=== PATIENT | female | born 1960 | race Hispanic/Latino ===

== ENCOUNTER 2025-01-31 11:06 | Inpatient (IN) | payer MEDICARE ==
[~2025-01-31] VITALS: Ht 162.6 cm; Wt 69.0 kg
--- NOTE | 2025-01-31 11:11 | ERN ---
ED Note History of Present Illness Stated Complaint: GBW, DIZZINESS, NAUSEA, VOMITING Chief Complaint: Weakness Time Seen by MD: 11:08 Dictation: PATIENT IS A 64-YEAR-OLD FEMALE COMING IN VIA EMS WITH COMPLAINTS OF HAVING GENERALIZED BODY WEAKNESS NAUSEA VOMITING AND DIZZINESS. ONSET WAS 2-3 DAYS PRIOR TO ARRIVAL. SHE STATES SHE HAS A GENERALIZED HEADACHE. DENIES CHEST PAIN BACK PAIN NO SOB NO ABDOMINAL PAIN. NIH IS 0 ON APPROACH Allergies: Coded Allergies: No Known Drug Allergies (Unverified Allergy, Unknown, 01/31/25) Past Medical History History: Not Applicable RN Note Reviewed/Agreed w/PFSH: Yes Review of System Dictation CONSTITUTIONAL: NEGATIVE EXCEPT FOR HPI GB W HEAD/FACE: NEGATIVE EXCEPT FOR HPI EENT: NEGATIVE EXCEPT FOR HPI RESPIRATORY: NEGATIVE EXCEPT FOR HPI GASTROINTESTINAL/ABDOMINAL: NEGATIVE EXCEPT FOR HPI NAUSEA VOMITING GENITOURINARY: NEGATIVE EXCEPT FOR HPI MUSCULOSKELETAL: NEGATIVE EXCEPT FOR HPI INTEGUMENTARY: NEGATIVE EXCEPT FOR HPI NEUROLOGICAL/PSYCH: NEGATIVE EXCEPT FOR HPI DIZZINESS HEMATOLOGIC/LYMPHATIC: NEGATIVE EXCEPT FOR HPI ALL SYSTEMS NEGATIVE, EXCEPT NOTED ABOVE. 13 POINT REVIEW OF SYSTEMS ASSESSED AND ALL NEGATIVE EXCEPT FOR ABOVE. Initial Vital Sign VS Vital Signs Date Time Temp Pulse Resp B/P (MAP) Pulse Ox O2 Delivery O2 Flow Rate FiO2 01/31/25 11:08 101.5 86 19 124/74 99 Room Air 0 01/31/25 12:59 21 Physical Exam Dictation VITAL SIGNS REVIEWED GENERAL APPEARANCE: ALERT, ORIENTED X 3, NO ACUTE DISTRESS, WELL DEVELOPED, NOURISHED. HEAD AND FACE: NON-TRAUMATIC. EYES: PERRL, PINK CONJUNCTIVAS, EYELID NO TRAUMA, ANTERIOR CHAMBER WITH ARCUS SENILIS. EARS: PINNAS INTACT AND NO SIGNS OF TRAUMA OR ERYTHEMA EAR CANALS CLEAR AND NO DISCHARGE TM NO ERYTHEMA NOSE: NO DISCHARGE, NO BLEEDING. OROPHARYNX: MOUTH NORMAL, TONGUE PINK, PHARYNX CLEAR,NO ERYTHEMA, TONSILS NO EXUDATES, NO ABSCESSES NOTED, MUCOUS MEMBRANE MOIST NECK: SUPPLE, NON-TENDER, NO THYROMEGALY, NO MASSES, NO JVD, NO BRUITS BREAST:DEFERRED CHEST:NO TENDERNESS, NO CREPITUS, NO PARADOXICAL MOVEMENT, NO RETRACTIONS LUNGS:CLEAR, WELL-VENTILATED, SYMMETRIC, NO RALES, NO WHEEZING, NO RHONCHI, NO STRIDOR, GOOD BREATH SOUNDS BILATERALLY HEART: REGULAR RATE, REGULAR RHYTHM, NO MURMUR, NO GALLOPS VASCULAR: NO PERIPHERAL EDEMA, ABDOMEN: SOFT, POSITIVE BOWEL SOUNDS, NONDISTENDED, NO GUARDING, NONTENDER, NO REBOUND, NO MASSES NO HEPATOMEGALY, NO SPLENOMEGALY, NO SNELL'S SIGN, NO HERNIAS. NO FOCAL TENDERNESS RECTAL: DEFERRED GENITAL: DEFERRED NEUROLOGICAL: NORMAL SPEECH, MOTOR FUNCTION INTACT, SENSORY FUNCTION INTACT NIH IS 0 MUSCULOSKELETAL: NECK NONTENDER, FULL RANGE OF MOTION, BACK NONTENDER, FULL RANGE OF MOTION, EXTREMITIES: NONTENDER, FULL RANGE OF MOTION SKIN: COLOR PINK, DRY, NO TURGOR, NO RASH, NO LACERATIONS, NO ABRASIONS, NO CONTUSIONS. LYMPHATIC: DEFERRED Results (Laboratory/Radiology) Laboratory/Radiology Laboratory Tests Test 01/31/25 11:23 01/31/25 11:32 01/31/25 12:58 01/31/25 14:58 White Blood Count 10.5 K/uL (4.8-10.8) Red Blood Count 4.35 MIL/uL (4.00-5.50) Hemoglobin 12.5 g/dL (12.0-16.0) Hematocrit 36.8 % (36-48) Mean Corpuscular Volume 84.6 fL (79-99) Mean Corpuscular Hemoglobin 28.7 pg (27.0-33.0) Mean Corpuscular Hemoglobin Concent 34.0 g/dL (32.0-36.0) Red Cell Distribution Width 13.2 % (11.0-15.5) Platelet Count 200 K/uL (130-400) Mean Platelet Volume 10.0 fL (7.5-10.5) Immature Granulocyte % (Auto) 0.5 % (0-1) Neutrophils (%) (Auto) 85.9 % (40.0-77.0) H Lymphocytes (%) (Auto) 7.4 % (21.0-51.0) L Monocytes (%) (Auto) 4.9 % (3.0-13.0) Eosinophils (%) (Auto) 0.9 % (0.0-8.0) Basophils (%) (Auto) 0.4 % (0.0-5.0) Neutrophils # (Auto) 9.0 K/uL (1.8-7.7) H Lymphocytes # (Auto) 0.8 K/uL (1.0-4.8) L Monocytes # (Auto) 0.5 K/uL (0.1-1.0) Eosinophils # (Auto) 0.09 K/uL (0.00-0.70) Basophils # (Auto) 0.04 K/uL (0.00-0.20) Absolute Immature Granulocyte (auto 0.05 K/uL (0-1) Nucleated Red Blood Cells 0.0 % (0.0-0.19) White Cell Morphology Comment See comments Sodium Level 134 mmol/L (136-145) L Potassium Level 3.7 mmol/L (3.5-5.1) Chloride Level 101 mmol/L (101-111) Carbon Dioxide Level 29 mmol/L (21-32) Blood Urea Nitrogen 23 mg/dL (7-18) H Creatinine 1.1 mg/dL (0.5-1.0) H Glomerular Filtration Rate Calc 55 mL/min (>90) Random Glucose 94 mg/dL (70-105) Lactic Acid Level 2.2 mmol/L (0.8-2.5) 1.0 mmol/L (0.8-2.5) Total Calcium 9.2 mg/dL (8.5-10.1) Troponin I High Sensitivity 8 ng/L (4-50) Lipase 18 U/L (16-77) Influenza Type A Antigen Negative For Type A Influenza Type B Antigen Negative For Type B SARS-CoV-2 Antigen (Rapid) PRESUMPTIVE NEGATIVE Urine Color YELLOW (YELLOW) Urine Appearance CLOUDY (CLEAR) H Urine pH 6.0 (5.0-8.0) Urine Specific [place] 1.015 (1.001-1.031) Urine Protein 50 mg/dL (NEGATIVE) H Urine Glucose (UA) NEGATIVE mg/dL (NEGATIVE) Urine Ketones NEGATIVE mg/dL (NEGATIVE) Urine Occult Blood +- (TRACE) (NEGATIVE) H Urine Nitrate NEGATIVE (NEGATIVE) Urine Bilirubin NEGATIVE mg/dL (NEGATIVE) Urine Urobilinogen 0.2 mg/dL (0.2-1.0) Urine Leukocyte Esterase 500 Senthil/uL (NEGATIVE) H Urine RBC 2-5 /HPF (0-1) H Urine WBC TNTC /HPF (0-1) H Urine WBC Clumps (Auto) MOD /HPF (0-1) Urine Squamous Epithelial Cells MANY /HPF (0-2) Urine Non-Squamous Epithelial Cells 2-5 /HPF (0-2) Urine Bacteria Moderate /HPF (None Seen) H Labs Reviewed?: Yes EKG Comment: EKG SINUS RHYTHM/HEART RATE 86/LEFT ANTERIOR FASCICULAR BLOCK/LEFT VENTRICULAR HYPERTROPHY. ED Course ED Course Orders Procedure Category Date Status Time Cbc With Differential LAB 01/31/25 Complete 11:08 Troponin I High LAB 01/31/25 Complete Sensitivity 11:08 Urinalysis Profile LAB 01/31/25 Complete 11:08 12 Lead Ekg Tracing- EKG 01/31/25 Complete Technical 11:08 0.9%Nacl 1000ml (Ns PHA 01/31/25 Complete 1000ml) 11:30 Ondansetron 4mg Inj PHA 01/31/25 Complete (Zofran 4mg Inj) 11:30 Lipase LAB 01/31/25 Complete 11:08 Basic Metabolic Panel LAB 01/31/25 Complete 11:08 Covid19 (Sars Antigen LAB 01/31/25 Complete Rapid) 11:16 Influenza Type A & B, LAB 01/31/25 Complete Rapid 11:16 Blood Cult LILY 01/31/25 In Process 11:16 Lactic Acid LAB 01/31/25 Complete 11:16 Acetaminophen 500mg PHA 01/31/25 Complete Tab (Tylenol 500mg T 11:30 Culture Urine LILY 01/31/25 In Process 13:27 Ceftriaxone 2gm Vial PHA 01/31/25 Complete (Rocephin 2gm Inj) 14:30 Lactic Acid (Removed) LAB 01/31/25 Complete 14:45 Current Medications Medications (Trade) Dose Ordered Sig/Zenaida Route PRN Reason Start Time Stop Time Status Last Admin Dose Admin Acetaminophen (TYLenol 500MG TAB) 1,000 mg ONCE ONCE PO 01/31/25 11:30 01/31/25 11:31 DC 01/31/25 11:48 Ceftriaxone Sodium (Rocephin 2gm Inj) 2 gm ONCE ONCE IVPB 01/31/25 14:30 01/31/25 14:31 DC Ondansetron HCl (zoFRAN 4MG INJ) 4 mg ONCE ONCE IVP 01/31/25 11:30 01/31/25 11:31 DC 01/31/25 11:48 Sodium Chloride 1,000 ml @ 0 mls/hr ONCE ONCE IV 01/31/25 11:30 01/31/25 11:31 DC 01/31/25 11:48 Vital Signs Date Time Temp Pulse Resp B/P (MAP) Pulse Ox O2 Delivery O2 Flow Rate FiO2 01/31/25 12:59 99.5 77 10 111/51 Room Air* 0 21 01/31/25 11:48 99.5 01/31/25 11:08 101.5 86 19 124/74 99 Room Air 0 1530/spoke with Dr. VIDAL and reviewed EKG labs and interventions for sepsis. He agreed to admit patient. Medical Decision Making MDM MDM: Differential diagnosis: ACS/AMI/urinary tract infection/pyelonephritis/electrolyte imbalance/dehydration Rationale: Tests considered and ordered secondary to shared decision making include: labs, ECG and radiology Previous outside records reviewed: Old ER visits. Risk of complication and/or morbidity or mortality of patient management: None Medications-Per medication reconciliation Need for hospitalization: Patient does meet criteria for hospitalization. Patient will need to be admitted for JACKY/acute cystitis with hematuria with Need for emergency major/minor surgery: No There are no social concerns with this patient. Prescription drug management Prescriptions will include symptomatic care Patient's prior external medical records from other ER visits were reviewed by me as indicated. Prior testing and results from previous visits were reviewed. Prior tests were taken into account with medical decision making and resource utilization, independent historian/historians were used to obtain complete medical history. I independently interpreted the test that were performed, results were reviewed by me and considered findings on radiology if ordered. Medical management and examination interpretation discussions were had by me with other qualified healthcare professionals as indicated for the patient's care. DX & DISP Disposition: Inpatient Decision to Admit Time: 15:35 Departure Impression: Primary Impression: Acute cystitis with hematuria Additional Impressions: JACKY (acute kidney injury), Hypochloremia, Hyponatremia, Fever, Sepsis Condition: Stable Time of Disposition: 15:35 I have reviewed the case, and I agree with, Diagnosis and Plan SAMIA CHAVEZ NP Jan 31, 2025 11:11
[2025-01-31 11:41] LABS: IMMATURE GRANULOCYTE ABSOLUTE 0.05 K/uL (0-1); NUCLEATED RED BLOOD CELLS 0.0 % (0.0-0.19); PLATELET COUNT (AUTO) 200 K/uL (130-400); RED BLOOD CELL COUNT(AUTO) 4.35 MIL/uL (4.00-5.50); RED CELL DISTRIBUTION WIDTH 13.2 % (11.0-15.5); WHITE BLOOD COUNT (AUTO) 10.5 K/uL (4.8-10.8)
[2025-01-31] MEDS: 0.9%NACL 1000ML 1,000 ML IV ONE (11:48)
[2025-01-31 11:59] LABS: CREATININE 1.1 mg/dL (0.5-1.0); GLOMERULAR FILTR. RATE CALC 55.0 mL/min (>90); GLUCOSE,RANDOM 94.0 mg/dL (70-105); SODIUM SERUM 134.0 mmol/L (136-145); UREA NITROGEN, BLOOD 23.0 mg/dL (7-18)
--- NOTE | 2025-01-31 12:10 | EKG ---
[facility] Test Date: 2025-01-31 Test Time: 11:16:37 Pat Name: BEATRIZ JACOBS Department: ED Room: 320 Gender: F Test Designer: [id number] : 1960 Requested By: SAMIA CHAVEZ Order Number: [id number] Reading MD: Marguerite Suarez Measurements Intervals [place] Rate: 86 P: 26 LA: 154 QRS: -53 QRSD: 99 T: 32 QT: 369 QTc: 441 Interpretive Statements Sinus rhythm Left anterior fascicular block Left ventricular hypertrophy No previous ECG available for comparison Electronically Signed On 02-01-2025 14:07:50 CDT by Marguerite Suarez Please click the below link to view image of tracing.
[2025-01-31 12:12] LABS: COVID19 (SARS ANTIGEN RAPID) PRESUMPTIVE NEGATIVE (NEGATIVE); INFLUENZA TYPE A Negative For Type A (NEGATIVE); INFLUENZA TYPE B Negative For Type B (NEGATIVE)
[2025-01-31 13:20] LABS: APPEARANCE,URINE CLOUDY (CLEAR); GLUCOSE, URINE (UA) NEGATIVE (NEGATIVE); LEUKOCYTE ESTERASE ,URINE 500 Leu/uL (NEGATIVE); NITRATE,URINE NEGATIVE (NEGATIVE); OCCULT BLOOD,URINE +- (TRACE) (NEGATIVE)
[2025-01-31 13:27] LABS: ADD UA MICROSCOPIC YES
[2025-01-31 13:36] LABS: SQUAMOUS EPITHELIAL CELL,UR MANY /HPF (0-2); WBC CLUMP MOD /HPF (0-1)
[2025-01-31] MEDS ORDERED: 0.9%NACL 50ML IV SCH (16:00)
[2025-01-31] MEDS: ZOSYN 3.375GM +NS 50ML IVPB SCH (16:23)
--- NOTE | 2025-01-31 18:14 | NUR ---
PENDING FAMILY TO BRING MEDICATIONS FROM HOME.
[2025-01-31 20:00] VITALS: BP 137/71; PULSE 85; RESP 15; TEMP 101
[2025-01-31 21:01] VITALS: TEMP 103
--- NOTE | 2025-01-31 23:09 | HP ---
INFECTIOUS DISEASE HISTORY & PHYSICAL NOTE Date of Service: Jan 31, 2025 HISTORY OF PRESENT ILLNESS: This is a 64-year-old female patient with medical history of diabetes mellitus, hypercholesterolemia, psoriasis and left foot osteomyelitis who presented to the hospital with chief complaint of nausea, vomiting, and generalized body weakness. Patient reported experiencing fever at home but no chills. Patient had a fever of 101.5 and a lactic acid of 2.2 on admission. No recent travel. Influenza and COVID-19 test was negative. A Urinalysis was positive. We will obtain an abdominal ultrasound. Patient has been started on Zosyn IV. We will follow up on the culture results and antibiotics to be adjusted if necessary when culture is updated or finalized. REVIEW OF SYSTEMS CONSTITUTIONAL: Denies fever, chills, or fatigue. HEAD/FACE: No signs of trauma. EENT: Denies eye pain, blurred vision, double vision, or light sensitivity. RESPIRATORY: Denies shortness of breath, cough, wheezing CARDIOVASCULAR: Denies chest pain, palpitation, syncope GASTROINTESTINAL/ABDOMINAL: Nausea and vomiting GENITOURINARY: Denies dysuria or hematuria. MUSCULOSKELETAL: Denies joint pain, tenderness, or trauma. Weakness. INTEGUMENTARY: Denies rash or itchiness NEUROLOGICAL/PSYCH: Denies anxiety, depression, heat or cold intolerance. PAST MEDICAL HISTORY: Diabetes mellitus. Hypercholesterolemia. Psoriasis. Left foot osteomyelitis. PAST SURGICAL HISTORY: Left hip surgery. Left knee surgery. Incision and drainage of left foot abscess. Appendectomy. Tonsillectomy. PAST SOCIAL HISTORY: Denies the use of tobacco, alcohol or any other illicit drug. FAMILY HISTORY: Mother had colon cancer. Coded Allergies: No Known Drug Allergies (Unverified Allergy, Unknown, 01/31/25) PHYSICAL EXAM EYES: Anicteric. Pupils equal and reactive. HENT: No oral thrush seen, moist Oral mucosa NECK: Supple, no JVD or thyromegaly. LUNGS: Good air entry. No rales, no rhonchi. CARDIOVASCULAR: S1, S2 regular. No murmur heard. ABDOMEN: Soft, non tender, bowel sounds present, no organomegaly CENTRAL NERVOUS SYSTEM: Awake, alert, oriented x 3. SKIN: No rashes, no swelling. Psoriasis. LYMPHATICS: No peripheral lymphadenopathy MUSCULOSKELETAL: No joint swelling, erythema or tenderness. EXTREMITIES: No cyanosis or clubbing. Weakness. BACK: No deformity, no pressure ulcer. GENITOURINARY: No dysuria or hematuria Vital Sign (Last 12 Hours) 01/31/25 01/31/25 01/31/25 01/31/25 11:08 11:48 12:59 18:48 Temp 101.5 99.5 99.5 98.4 Pulse 86 77 81 Resp 19 10 17 B/P (MAP) 124/74 111/51 148/57 Pulse Ox 99 97 O2 Delivery Room Air Room Air* Room Air* O2 Flow Rate 0 0 0 FiO2 21 21 01/31/25 01/31/25 19:47 21:01 Temp 100.9 102.9 LABS: Laboratory: Test 01/31/25 19:49 01/31/25 14:58 01/31/25 12:58 01/31/25 11:32 Range/Units Whole Blood Glucose 121 H 70-110 MG/DL Lactic Acid Level 1.0 0.8-2.5 mmol/L Urine Color YELLOW YELLOW Urine Appearance CLOUDY H CLEAR Urine pH 6.0 5.0-8.0 Urine Specific [place] 1.015 1.001-1.031 Urine Protein 50 H NEGATIVE mg/dL Urine Glucose (UA) NEGATIVE NEGATIVE mg/dL Urine Ketones NEGATIVE NEGATIVE mg/dL Urine Occult Blood +- (TRACE) H NEGATIVE Urine Nitrate NEGATIVE NEGATIVE Urine Bilirubin NEGATIVE NEGATIVE mg/dL Urine Urobilinogen 0.2 0.2-1.0 mg/dL Urine Leukocyte Esterase 500 H NEGATIVE Senthil/uL Urine RBC 2-5 H 0-1 /HPF Urine WBC TNTC H 0-1 /HPF Urine WBC Clumps (Auto) MOD 0-1 /HPF Urine Squamous Epithelial Cells MANY 0-2 /HPF Urine Non-Squamous Epithelial Cells 2-5 0-2 /HPF Urine Bacteria Moderate H None Seen /HPF Influenza Type A Antigen Negative For Type A NEGATIVE Influenza Type B Antigen Negative For Type B NEGATIVE SARS-CoV-2 Antigen (Rapid) PRESUMPTIVE NEGATIVE NEGATIVE Test 01/31/25 11:23 Range/Units White Blood Count 10.5 4.8-10.8 K/uL Red Blood Count 4.35 4.00-5.50 MIL/uL Hemoglobin 12.5 12.0-16.0 g/dL Hematocrit 36.8 36-48 % Mean Corpuscular Volume 84.6 79-99 fL Mean Corpuscular Hemoglobin 28.7 27.0-33.0 pg Mean Corpuscular Hemoglobin Concent 34.0 32.0-36.0 g/dL Red Cell Distribution Width 13.2 11.0-15.5 % Platelet Count 200 130-400 K/uL Mean Platelet Volume 10.0 7.5-10.5 fL Immature Granulocyte % (Auto) 0.5 0-1 % Neutrophils (%) (Auto) 85.9 H 40.0-77.0 % Lymphocytes (%) (Auto) 7.4 L 21.0-51.0 % Monocytes (%) (Auto) 4.9 3.0-13.0 % Eosinophils (%) (Auto) 0.9 0.0-8.0 % Basophils (%) (Auto) 0.4 0.0-5.0 % Neutrophils # (Auto) 9.0 H 1.8-7.7 K/uL Lymphocytes # (Auto) 0.8 L 1.0-4.8 K/uL Monocytes # (Auto) 0.5 0.1-1.0 K/uL Eosinophils # (Auto) 0.09 0.00-0.70 K/uL Basophils # (Auto) 0.04 0.00-0.20 K/uL Absolute Immature Granulocyte (auto 0.05 0-1 K/uL Nucleated Red Blood Cells 0.0 0.0-0.19 % White Cell Morphology Comment See comments Sodium Level 134 L 136-145 mmol/L Potassium Level 3.7 3.5-5.1 mmol/L Chloride Level 101 101-111 mmol/L Carbon Dioxide Level 29 21-32 mmol/L Blood Urea Nitrogen 23 H 7-18 mg/dL Creatinine 1.1 H 0.5-1.0 mg/dL Glomerular Filtration Rate Calc 55 >90 mL/min Random Glucose 94 70-105 mg/dL Total Calcium 9.2 8.5-10.1 mg/dL Troponin I High Sensitivity 8 4-50 ng/L Lipase 18 16-77 U/L Current Medications Medications (Trade) Dose Ordered Sig/Zenaida Route PRN Reason Start Time Stop Time Status Last Admin Dose Admin Acetaminophen (TYLenol 325MG TAB) 650 mg Q6H PRN PO MILD PAIN (1-3) 01/31/25 16:00 03/02/25 15:59 01/31/25 19:47 650 MG Acetaminophen (TYLenol 325MG TAB) 650 mg Q6H PRN PO FEVER 01/31/25 16:00 03/02/25 15:59 Enoxaparin Sodium (Lovenox) 40 mg DAILY SQ 02/01/25 09:00 03/03/25 08:59 Ibuprofen (moTRIN) 800 mg Q6H PRN PO FEVER 01/31/25 21:00 03/02/25 20:59 Insulin Human Lispro (HumaLOG LISpro 100 UNIT/ML 3ML) INSULIN SLIDING SCAL... ACHS SQ 01/31/25 16:30 03/02/25 16:29 Ondansetron HCl (zoFRAN 4MG TABLET) 4 mg Q6H PRN PO NAUSEA/VOMITING 01/31/25 16:00 03/02/25 15:59 01/31/25 16:41 4 MG Piperacillin Sod/ Tazobactam Sod (Zosyn 3.375gm+NS 50ml) 3.375 gm Q8H IVPB 01/31/25 16:00 02/10/25 15:59 01/31/25 16:23 3.375 GM Sodium Chloride (NS 50ml) 50 ml AD IV 01/31/25 16:00 03/02/25 15:59 ASSESSMENT: Urinary tract infection. Generalized body weakness. Diabetes mellitus. Hypercholesterolemia. History of psoriasis. PLAN: Admit to the medical-surgical floor. Start Zosyn 3.375 g IV every 8 hours. We will follow up on the culture results. Continue antidiabetics. Start Zofran as needed for nausea or vomiting. Obtain abdominal ultrasound. Nursing to List home medications for review. We will monitor electrolytes. This case was reviewed and discussed with my supervising physician and the above assessment and plan was formulated and agreed upon. ATTESTATION BY PHYSICIAN I have seen and examined the patient. I reviewed the documentation, medical decision making, and treatment plan as noted by the mid-level provider above. I agree with the findings and plan of care. KYLE VIDAL MD, MIRTA L [employer]LECT[employer]UP SYSTEM OPERATOR Jan 31, 2025 23:09
[2025-02-01] VITALS (10 sets, daily range): BP systolic 92–138; BP diastolic 40–58; PULSE 63–85; RESP 16–18; TEMP 98–98.5; O2SAT 99–100
--- NOTE | 2025-02-01 00:53 | NUR ---
ASSUMED PT CARE
--- NOTE | 2025-02-01 00:55 | NUR ---
CALLED FOR A REPORT FLOOR NURSE UNAVILABLE AT THE MOMENT
[2025-02-01] MEDS ORDERED: INSU3INS3 SQ (01:55)
[2025-02-01] MEDS ORDERED: INSU100I32 SQ (01:55)
[2025-02-01 07:03] LABS: IMMATURE GRANULOCYTE ABSOLUTE 0.04 K/uL (0-1); NUCLEATED RED BLOOD CELLS 0.0 % (0.0-0.19); PLATELET COUNT (AUTO) 169 K/uL (130-400); RED BLOOD CELL COUNT(AUTO) 3.90 MIL/uL (4.00-5.50); RED CELL DISTRIBUTION WIDTH 13.3 % (11.0-15.5); WHITE BLOOD COUNT (AUTO) 8.7 K/uL (4.8-10.8)
[2025-02-01 07:22] LABS: ASPARTATE AMINOTRANSFERASE 18.0 U/L (10-37); CREATININE 1.5 mg/dL (0.5-1.0); GLOMERULAR FILTR. RATE CALC 38.0 mL/min (>90); GLUCOSE,RANDOM 111.0 mg/dL (70-105); SODIUM SERUM 138.0 mmol/L (136-145); TOTAL PROTEIN, SERUM 6.9 g/dL (6.0-8.3); UREA NITROGEN, BLOOD 28.0 mg/dL (7-18)
[2025-02-01] MEDS: ENOXAPARIN SODIUM 40 MG/0.4 ML SYRINGE SQ SCH (08:50)
--- NOTE | 2025-02-01 11:22 | NUR ---
DCP:HOME Pt currently lives alone in her home. Pt does not have any DME, home health, or provider services. Pt states that she is able to complete ADLs independently (just very slow). PCP is Dr. Carver and uses [facility] for any RX needs. At [place] pt will want to go home and family can assist with transportation services. Addendum: 02/01/25 at 1124 by VONNIE SINGH SS Amended: Links added.
--- NOTE | 2025-02-01 17:13 | PN ---
INFECTIOUS DISEASE PROGRESS NOTE Date of Service: Feb 01, 2025 SUBJECTIVE: Patient was seen and examined at bedside in room 320. Patient is awake, alert and oriented x3. Patient had a fever of 102.9 last night but no fever this morning, current temperature is 98.4. The preliminary blood culture and urine culture results is growing Gram-negative rods. We will continue on Zosyn IV every 8 hours and follow up on the final culture results. The abdominal ultrasound pending interpretation. No reports of nausea or vomiting. PHYSICAL EXAM EYES: Anicteric. Pupils equal and reactive. HENT: No oral thrush seen, moist Oral mucosa NECK: Supple, no JVD or thyromegaly. LUNGS: Good air entry. No rales, no rhonchi. CARDIOVASCULAR: S1, S2 regular. No murmur heard. ABDOMEN: Soft, non tender, bowel sounds present, no organomegaly CENTRAL NERVOUS SYSTEM: Awake, alert, oriented x 3. SKIN: No rashes, no swelling. Psoriasis. LYMPHATICS: No peripheral lymphadenopathy MUSCULOSKELETAL: No joint swelling, erythema or tenderness. EXTREMITIES: No cyanosis or clubbing. Weakness. BACK: No deformity, no pressure ulcer. GENITOURINARY: No dysuria or hematuria. Vital Sign (Last 12 Hours) 02/01/25 02/01/25 02/01/25 02/01/25 07:50 08:17 11:18 15:55 Temp 98.4 98.4 98.1 Pulse 69 75 63 Resp 18 18 18 B/P (MAP) 138/40 133/58 123/56 Pulse Ox 97 93 99 O2 Delivery Room Air* Room Air Room Air Room Air O2 Flow Rate 0 FiO2 21 LABS: Laboratory: Test 02/01/25 15:11 02/01/25 06:30 01/31/25 14:58 01/31/25 12:58 Range/Units Whole Blood Glucose 134 H 70-110 MG/DL White Blood Count 8.7 4.8-10.8 K/uL Red Blood Count 3.90 L 4.00-5.50 MIL/uL Hemoglobin 11.2 L 12.0-16.0 g/dL Hematocrit 32.5 L 36-48 % Mean Corpuscular Volume 83.3 79-99 fL Mean Corpuscular Hemoglobin 28.7 27.0-33.0 pg Mean Corpuscular Hemoglobin Concent 34.5 32.0-36.0 g/dL Red Cell Distribution Width 13.3 11.0-15.5 % Platelet Count 169 130-400 K/uL Mean Platelet Volume 10.0 7.5-10.5 fL Immature Granulocyte % (Auto) 0.5 0-1 % Neutrophils (%) (Auto) 78.5 H 40.0-77.0 % Lymphocytes (%) (Auto) 13.3 L 21.0-51.0 % Monocytes (%) (Auto) 6.4 3.0-13.0 % Eosinophils (%) (Auto) 0.7 0.0-8.0 % Basophils (%) (Auto) 0.6 0.0-5.0 % Neutrophils # (Auto) 6.8 1.8-7.7 K/uL Lymphocytes # (Auto) 1.2 1.0-4.8 K/uL Monocytes # (Auto) 0.6 0.1-1.0 K/uL Eosinophils # (Auto) 0.06 0.00-0.70 K/uL Basophils # (Auto) 0.05 0.00-0.20 K/uL Absolute Immature Granulocyte (auto 0.04 0-1 K/uL Nucleated Red Blood Cells 0.0 0.0-0.19 % Sodium Level 138 136-145 mmol/L Potassium Level 3.9 3.5-5.1 mmol/L Chloride Level 102 101-111 mmol/L Carbon Dioxide Level 26 21-32 mmol/L Blood Urea Nitrogen 28 H 7-18 mg/dL Creatinine 1.5 H 0.5-1.0 mg/dL Glomerular Filtration Rate Calc 38 >90 mL/min Random Glucose 111 H 70-105 mg/dL Hemoglobin A1c 7.5 H 4.0-6.0 % Estimated Average Glucose (eAG) 169 H 70-126 mg/dL Total Calcium 8.6 8.5-10.1 mg/dL Magnesium Level 2.20 1.80-2.40 mg/dL Total Bilirubin 0.8 0.2-1.0 mg/dL Aspartate Amino Transf (AST/SGOT) 18 10-37 U/L Alanine Aminotransferase (ALT/SGPT) 20 12-78 U/L Alkaline Phosphatase 57 50-136 U/L Total Protein 6.9 6.0-8.3 g/dL Albumin 2.8 L 3.5-5.0 g/dL Lactic Acid Level 1.0 0.8-2.5 mmol/L Urine Color YELLOW YELLOW Urine Appearance CLOUDY H CLEAR Urine pH 6.0 5.0-8.0 Urine Specific [place] 1.015 1.001-1.031 Urine Protein 50 H NEGATIVE mg/dL Urine Glucose (UA) NEGATIVE NEGATIVE mg/dL Urine Ketones NEGATIVE NEGATIVE mg/dL Urine Occult Blood +- (TRACE) H NEGATIVE Urine Nitrate NEGATIVE NEGATIVE Urine Bilirubin NEGATIVE NEGATIVE mg/dL Urine Urobilinogen 0.2 0.2-1.0 mg/dL Urine Leukocyte Esterase 500 H NEGATIVE Senthil/uL Urine RBC 2-5 H 0-1 /HPF Urine WBC TNTC H 0-1 /HPF Urine WBC Clumps (Auto) MOD 0-1 /HPF Urine Squamous Epithelial Cells MANY 0-2 /HPF Urine Non-Squamous Epithelial Cells 2-5 0-2 /HPF Urine Bacteria Moderate H None Seen /HPF Test 01/31/25 11:32 01/31/25 11:23 Range/Units Influenza Type A Antigen Negative For Type A NEGATIVE Influenza Type B Antigen Negative For Type B NEGATIVE SARS-CoV-2 Antigen (Rapid) PRESUMPTIVE NEGATIVE NEGATIVE White Cell Morphology Comment See comments Troponin I High Sensitivity 8 4-50 ng/L Lipase 18 16-77 U/L DIAGNOSTICS/RADIOLOGY: PATIENT: BEATRIZ JACOBS ACCT: [id number] LOC: [facility] [place] U: [id number] AGE/SX: 64/F ROOM: [facility] RE01/31/[address]: KYLE VIDAL MD : 1960 BED: 1 DIS: STATUS: ADM IN TLOC: SPEC: [id number] BLANCA: 01/31/25-1199 STATUS: RES REQ: [id number] RECD: 02/01/[address]: SAMIA CHAVEZ NP SOURCE: BLOOD ENTR: 02/01/[address] [facility] [address]: ODETTE BROWN MD [facility]: BLOOD ORDERED: AERO ID & SENS Procedure Result Tyson Date-Time AEROBIC ID & SENSITIVITIES Preliminary 02/01/25-1144 [facility] COLONY DESCRIPTION: DAY 1: GRAM STAIN FROM BLOOD CULTURE BOTTLE GRAM NEGATIVE RODS ANAEROBIC BOTTLE ISOLATION IN PROGRESS Test(s) performed by: [facility] [address] [place] [address] PATIENT: BEATRIZ JACOBS ACCT: [id number] LOC: [facility] [place] U: [id number] AGE/SX: 64/F ROOM: [facility] RE01/31/[address]: KYLE VIDAL MD : 1960 BED: 1 DIS: STATUS: ADM IN TLOC: SPEC: [id number] BLANCA: 01/31/25 STATUS: RES REQ: [id number] RECD: 02/01/25 [facility] DR: SAMIA CHAVEZ NP SOURCE: [facility] ENTR: 02/01/250634 [facility] DR: ODETTE BROWN [facility] DAVIAN JUÁREZ MD ORDERED: AERO ID & SENS Procedure Result Tyson Date-Time AEROBIC ID & SENSITIVITIES Preliminary 02/01/25-1145 [facility] COLONY DESCRIPTION: DAY 1: COLONY COUNT: >100,000 CFU/ML GRAM NEGATIVE RODS IDENTIFICATION AND SENSITIVITY TO FOLLOW Test(s) performed by: [facility] [address] [place] [address] ASSESSMENT: Urinary tract infection. Gram-negative bacteremia. Generalized body weakness. Diabetes mellitus. Hypercholesterolemia. History of psoriasis. PLAN: Continue Zosyn 3.375 g IV every 8 hours. We will follow up on the final culture results. Continue antidiabetics. Continue antiemetics. Pending abdominal ultrasound interpretation. We will monitor electrolytes. This case was reviewed and discussed with my supervising physician and the above assessment and plan was formulated and agreed upon. ATTESTATION BY PHYSICIAN I have seen and examined the patient. I reviewed the documentation, medical decision making, and treatment plan as noted by the mid-level provider above. I agree with the findings and plan of care. KYLE VIDAL MD, [facility] Feb 01, 2025 17:13
[2025-02-02] VITALS (8 sets, daily range): BP systolic 118–158; BP diastolic 54–66; PULSE 62–70; RESP 18–20; TEMP 97.7–99.6; O2SAT 95–99
--- NOTE | 2025-02-02 05:25 | HMCIMG ---
EXAMINATION: ULTRASOUND OF THE ABDOMEN WITH COLOR DOPPLER. CLINICAL HISTORY: Nausea, vomiting and hematuria. COMPARISON: None. TECHNIQUE: Real-time grayscale ultrasound images of the abdomen. In addition, color Doppler is medically necessary to perform in order to evaluate vascularity and blood flow. FINDINGS: Liver: Normal in caliber, the right hepatic lobe measures 15.7 cm in the craniocaudal dimension. There is normal echogenicity of the hepatic parenchyma. There is no focal hepatic abnormality or intrahepatic biliary ductal dilatation. There is normal spectral Doppler of the main portal vein. Gallbladder: Overdistended with normal wall thickness (0.15 cm). No hyperemia or pericholecystic free fluid. There are small mobile calculi. Common bile duct is normal in caliber, measuring 0.60 cm. Spleen is normal in caliber and measures 8.4 cm in craniocaudal dimension. No focal lesions. Pancreas: Visualized aspects is normal in caliber and echotexture. No calcification or dilated pancreatic duct. The kidneys are normal in caliber, the right kidney measures 11.2 x 6.0 x 4.7 cm and the left kidney measures 10.3 x 6.5 x 5.2 cm in craniocaudal, AP, and transverse dimensions respectively. There is normal renal cortical thickness, and cortical echogenicity. There is no renal calculus or hydronephrosis. The proximal abdominal aorta is normal in caliber measuring 2.0 cm in the AP dimension. The mid and distal aspects are obscured by overlying bowel gas. Visualized aspects of the inferior vena cava are unremarkable. IMPRESSION: Over-distended gall bladder with small calculi. Recommend HIDA Scan to rule out cholecystitis. /[place]
[2025-02-02 06:15] LABS: NUCLEATED RED BLOOD CELLS 0.0 % (0.0-0.19); PLATELET COUNT (AUTO) 158.0 K/uL (130-400); RED BLOOD CELL COUNT(AUTO) 3.84 MIL/uL (4.00-5.50); RED CELL DISTRIBUTION WIDTH 13.1 % (11.0-15.5); WHITE BLOOD COUNT (AUTO) 5.9 K/uL (4.8-10.8)
[2025-02-02 06:24] LABS: CREATININE 1.2 mg/dL (0.5-1.0); GLOMERULAR FILTR. RATE CALC 50.0 mL/min (>90); GLUCOSE,RANDOM 140.0 mg/dL (70-105); SODIUM SERUM 137.0 mmol/L (136-145); UREA NITROGEN, BLOOD 21.0 mg/dL (7-18)
[2025-02-02] MEDS ORDERED: PHARMACY COMMUNICATION MISC SCH (12:30)
[2025-02-02] MEDS: MEROPENEM 1GM 1 GM VIAL IVPB SCH (12:58)
--- NOTE | 2025-02-02 15:57 | PN ---
INFECTIOUS DISEASE PROGRESS NOTE Date of Service: Feb 02, 2025 SUBJECTIVE: Patient was seen and examined at bedside in room 320. The abdominal ultrasound showed Cholelithiasis with distended gallbladder. We will obtain a HIDA scan to rule out cholecystitis. The final blood culture and urine culture results came back positive for ESBL, E coli. We will discontinue Zosyn and start Meropenem 1 g IV every 12 hours. Patient had a low-grade fever of 99.7 this morning. We will continue to follow patient's care. PHYSICAL EXAM EYES: Anicteric. Pupils equal and reactive. HENT: No oral thrush seen, moist Oral mucosa NECK: Supple, no JVD or thyromegaly. LUNGS: Good air entry. No rales, no rhonchi. CARDIOVASCULAR: S1, S2 regular. No murmur heard. ABDOMEN: Soft, non tender, bowel sounds present, no organomegaly CENTRAL NERVOUS SYSTEM: Awake, alert, oriented x 3. SKIN: No rashes, no swelling. Psoriasis. LYMPHATICS: No peripheral lymphadenopathy MUSCULOSKELETAL: No joint swelling, erythema or tenderness. EXTREMITIES: No cyanosis or clubbing. Weakness. BACK: No deformity, no pressure ulcer. GENITOURINARY: No dysuria or hematuria Vital Sign (Last 12 Hours) 02/02/25 02/02/25 02/02/25 07:49 08:06 11:32 Temp 99.7 97.7 Pulse 68 70 Resp 18 18 B/P (MAP) 134/64 118/65 Pulse Ox 95 95 98 O2 Delivery Room Air Room Air* Room Air O2 Flow Rate 0 FiO2 21 Intake & Output (last 24hrs) 02/01/25 02/01/25 02/02/25 15:00 23:00 07:00 Intake Total 125 ml Balance 125 ml LABS: Laboratory: Test 02/02/25 11:10 02/02/25 06:05 02/01/25 06:30 Range/Units Whole Blood Glucose 195 H 70-110 MG/DL White Blood Count 5.9 # 4.8-10.8 K/uL Red Blood Count 3.84 L 4.00-5.50 MIL/uL Hemoglobin 10.7 L 12.0-16.0 g/dL Hematocrit 31.9 L 36-48 % Mean Corpuscular Volume 83.1 79-99 fL Mean Corpuscular Hemoglobin 27.9 27.0-33.0 pg Mean Corpuscular Hemoglobin Concent 33.5 32.0-36.0 g/dL Red Cell Distribution Width 13.1 11.0-15.5 % Platelet Count 158 130-400 K/uL Mean Platelet Volume 10.0 7.5-10.5 fL Nucleated Red Blood Cells 0.0 0.0-0.19 % Sodium Level 137 136-145 mmol/L Potassium Level 4.0 3.5-5.1 mmol/L Chloride Level 102 101-111 mmol/L Carbon Dioxide Level 25 21-32 mmol/L Blood Urea Nitrogen 21 H 7-18 mg/dL Creatinine 1.2 H 0.5-1.0 mg/dL Glomerular Filtration Rate Calc 50 >90 mL/min Random Glucose 140 H 70-105 mg/dL Total Calcium 8.9 8.5-10.1 mg/dL Magnesium Level 2.10 1.80-2.40 mg/dL Immature Granulocyte % (Auto) 0.5 0-1 % Neutrophils (%) (Auto) 78.5 H 40.0-77.0 % Lymphocytes (%) (Auto) 13.3 L 21.0-51.0 % Monocytes (%) (Auto) 6.4 3.0-13.0 % Eosinophils (%) (Auto) 0.7 0.0-8.0 % Basophils (%) (Auto) 0.6 0.0-5.0 % Neutrophils # (Auto) 6.8 1.8-7.7 K/uL Lymphocytes # (Auto) 1.2 1.0-4.8 K/uL Monocytes # (Auto) 0.6 0.1-1.0 K/uL Eosinophils # (Auto) 0.06 0.00-0.70 K/uL Basophils # (Auto) 0.05 0.00-0.20 K/uL Absolute Immature Granulocyte (auto 0.04 0-1 K/uL Hemoglobin A1c 7.5 H 4.0-6.0 % Estimated Average Glucose (eAG) 169 H 70-126 mg/dL Total Bilirubin 0.8 0.2-1.0 mg/dL Aspartate Amino Transf (AST/SGOT) 18 10-37 U/L Alanine Aminotransferase (ALT/SGPT) 20 12-78 U/L Alkaline Phosphatase 57 50-136 U/L Total Protein 6.9 6.0-8.3 g/dL Albumin 2.8 L 3.5-5.0 g/dL DIAGNOSTICS/RADIOLOGY: PATIENT: BEATRIZ JACOBS ACCT: [id number] LOC: [facility] U: [id number] AGE/SX: 64/F ROOM: 320 RE01/31/[address]: KYLE VIDAL MD : 1960 BED: 1 DIS: STATUS: ADM IN TLOC: SPEC: [id number] BLANCA: 01/31/25 STATUS: COMP REQ: [id number] RECD: 02/01/[address]: SAMIA CHAVEZ NP SOURCE: BLOOD ENTR: 02/01/[address] [facility] [address]: ODETTE BROWN MD [facility]: BLOOD ORDERED: AERO ID & SENS Procedure Result Tyson Date-Time AEROBIC ID & SENSITIVITIES Final 02/02/25-908 MRL EXTENDED SPECTRUM BETA-LACTAMASE ORGANISM IDENTIFIED. CRITICAL RESULT WAS CALLED BY BIJAN SALAZAR ON 02/02/25 AT 0906. CRITICAL VALUES WERE READ BACK AND ACKNOWLEDGED BY JUANCARLOS LARSON [place] [place]Y DESCRIPTION: DAY 1: GRAM STAIN FROM BLOOD CULTURE BOTTLE GRAM NEGATIVE RODS ANAEROBIC BOTTLE ISOLATION IN PROGRESS DAY 2: GRAM NEGATIVE RODS IDENTIFICATION AND SENSITIVITY TO FOLLOW COMMENTS(R): ESBL ESCHERICHIA COLI E COLI M.I.C. RX --------- ---- AMPICILLIN >16 R* AZTREONAM >16 ESBL CEFAZOLIN >16 R* CEFTAZIDIME >16 ESBL CEFTAZIDIME/AVIBACTAM <=8 S CEFTRIAXONE >2 ESBL CIPROFLOXACIN >2 R GENTAMICIN >8 R LEVOFLOXACIN >4 R TOBRAMYCIN >8 R AMPICILLIN/SULBACTAM 16/8 I MEROPENEM <=1 S PIPERACILLIN/TAZOBACTAM <=8 S TRIMETHOPRIM/SUFLAMETHOXAZOLE <=2/38 S PATIENT: BEATRIZ JACOBS ACCT: [id number] LOC: [facility] U: [id number] AGE/SX: 64/F ROOM: [facility] RE01/31/[address]: KYLE VIDAL MD : 1960 BED: 1 DIS: STATUS: ADM IN TLOC: SPEC: [id number] BLANCA: 01/31/25 STATUS: COMP REQ: [id number] RECD: 02/01/[address]: SAMIA CHAVEZ NP SOURCE: [facility] [place] ENTR: 02/01/[address] [facility] [address]: ODETTE BROWN MD [facility]: CLEAN CAT DAVIAN JUÁREZ MD ORDERED: AERO ID & SENS Procedure Result Tyson Date-Time AEROBIC ID & SENSITIVITIES Final 02/02/25-09 MRL EXTENDED SPECTRUM BETA-LACTAMASE ORGANISM IDENTIFIED. CRITICAL RESULT WAS CALLED BY BIJAN SALAZAR ON 02/02/25 AT 0906. CRITICAL VALUES WERE READ BACK AND ACKNOWLEDGED BY JUANCARLOS LARSON [place] [place] COLONY DESCRIPTION: DAY 1: COLONY COUNT: >100,000 CFU/ML GRAM NEGATIVE RODS IDENTIFICATION AND SENSITIVITY TO FOLLOW COMMENTS(R): ESBL ESCHERICHIA COLI E COLI M.I.C. RX --------- ---- AMPICILLIN >16 R* AZTREONAM >16 ESBL CEFAZOLIN >16 R* CEFTAZIDIME >16 ESBL CEFTAZIDIME/AVIBACTAM <=8 S CEFTRIAXONE >2 ESBL CIPROFLOXACIN >2 R GENTAMICIN >8 R LEVOFLOXACIN >4 R NITROFURANTOIN <=32 S TOBRAMYCIN >8 R MEROPENEM <=1 S PIPERACILLIN/TAZOBACTAM <=8 S TRIMETHOPRIM/SUFLAMETHOXAZOLE <=2/38 S ASSESSMENT: E coli bacteremia. Urinary tract infection E Coli. Infection with multidrug resistant organism. Cholelithiasis with distended gallbladder. Generalized body weakness. Diabetes mellitus. Hypercholesterolemia. History of psoriasis. PLAN: Discontinue Zosyn. Start Meropenem 1 g IV every 12 hours. Continue antidiabetics. Continue antiemetics. We will obtain a Hida scan to rule out cholecystitis. We will monitor electrolytes. This case was reviewed and discussed with my supervising physician and the above assessment and plan was formulated and agreed upon. ATTESTATION BY PHYSICIAN I have seen and examined the patient. I reviewed the documentation, medical decision making, and treatment plan as noted by the mid-level provider above. I agree with the findings and plan of care. KYLE VIDAL MD, MIRTA L [facility] Feb 02, 2025 15:57
[2025-02-03 04:09] VITALS: BP 119/65; PULSE 69; RESP 18; TEMP 100.5
--- NOTE | 2025-02-03 06:01 | NUR ---
LBM STATED BY PATIENT WAS ON 01/30. I ASKED PATIENT IF SHE WOULD LIKE TO TAKE A LAXATIVE OR A STOOL SOFTENER AND SHE DENIED. SHE SAYS THIS IS NORMAL FOR HER SINCE "SHE DOESN'T EAT A LOT".
[2025-02-03 08:00] VITALS: BP 127/52; PULSE 60; RESP 18; TEMP 98.1
[2025-02-03 09:45] VITALS: O2SAT 99
[2025-02-03 10:30] LABS: INR 1.03 (0.85-1.15)
--- NOTE | 2025-02-03 11:27 | PN ---
INFECTIOUS DISEASE PROGRESS NOTE Date of Service: Feb 03, 2025 SUBJECTIVE: Patient was seen and examined at bedside in room 320. Patient is awake, alert and oriented x3. Patient had a fever of 100.6 earlier this morning. Patient had a HIDA scan done yesterday to rule out cholecystitis and pending interpretation at this time. We will continue on Meropenem IV for UTI and bacteremia. Patient reported she does not drive due to she has been experiencing dizzy episodes for at least 2 months. We will obtain consult with neurology. We will have case management evaluate patient for referral to SNF and we will place midline for long-term IV antibiotics. We will continue to fol low patient's care. PHYSICAL EXAM EYES: Anicteric. Pupils equal and reactive. HENT: No oral thrush seen, moist Oral mucosa. NECK: Supple, no JVD or thyromegaly. LUNGS: Good air entry. No rales, no rhonchi. CARDIOVASCULAR: S1, S2 regular. No murmur heard. ABDOMEN: Soft, non tender, bowel sounds present, no organomegaly. CENTRAL NERVOUS SYSTEM: Awake, alert, oriented x 3. SKIN: No rashes, no swelling. Psoriasis. LYMPHATICS: No peripheral lymphadenopathy MUSCULOSKELETAL: No joint swelling, erythema or tenderness. EXTREMITIES: No cyanosis or clubbing. Weakness. BACK: No deformity, no pressure ulcer. GENITOURINARY: No dysuria or hematuria. Vital Sign (Last 12 Hours) 02/03/25 02/03/25 04:09 08:00 Temp 100.6 98.1 Pulse 69 60 Resp 18 18 B/P (MAP) 119/65 127/52 Pulse Ox 100 99 O2 Delivery Room Air Room Air LABS: Laboratory: Test 02/03/25 10:17 02/03/25 05:49 02/02/25 06:05 Range/Units Prothrombin Time 10.9 9.6-11.6 SEC Prothromb Time International Ratio 1.03 0.85-1.15 Activated Partial Thromboplast Time 26.7 26.3-35.5 SEC Whole Blood Glucose 155 H 70-110 MG/DL White Blood Count 5.9 # 4.8-10.8 K/uL Red Blood Count 3.84 L 4.00-5.50 MIL/uL Hemoglobin 10.7 L 12.0-16.0 g/dL Hematocrit 31.9 L 36-48 % Mean Corpuscular Volume 83.1 79-99 fL Mean Corpuscular Hemoglobin 27.9 27.0-33.0 pg Mean Corpuscular Hemoglobin Concent 33.5 32.0-36.0 g/dL Red Cell Distribution Width 13.1 11.0-15.5 % Platelet Count 158 130-400 K/uL Mean Platelet Volume 10.0 7.5-10.5 fL Nucleated Red Blood Cells 0.0 0.0-0.19 % Sodium Level 137 136-145 mmol/L Potassium Level 4.0 3.5-5.1 mmol/L Chloride Level 102 101-111 mmol/L Carbon Dioxide Level 25 21-32 mmol/L Blood Urea Nitrogen 21 H 7-18 mg/dL Creatinine 1.2 H 0.5-1.0 mg/dL Glomerular Filtration Rate Calc 50 >90 mL/min Random Glucose 140 H 70-105 mg/dL Total Calcium 8.9 8.5-10.1 mg/dL Magnesium Level 2.10 1.80-2.40 mg/dL ASSESSMENT: E coli bacteremia. Urinary tract infection E Coli. Infection with multidrug resistant organism. Cholelithiasis with distended gallbladder. Generalized body weakness. Diabetes mellitus. Hypercholesterolemia. History of psoriasis. Dizziness. PLAN: Continue Meropenem. Continue antidiabetics. Continue antiemetics. Pending Hida scan reading. Case management to evaluate patient for referral to SNF for IV antibiotics. Place midline. Obtain Neurology consult. This case was reviewed and discussed with my supervising physician and the above assessment and plan was formulated and agreed upon. ATTESTATION BY PHYSICIAN I have seen and examined the patient. I reviewed the documentation, medical decision making, and treatment plan as noted by the mid-level provider above. I agree with the findings and plan of care. KYLE VIDAL MD, MIRTA L [facility] Feb 03, 2025 11:27
[2025-02-03 11:47] VITALS: BP 155/67; PULSE 64; RESP 17; TEMP 98
[2025-02-03] MEDS: LACTULOSE 20 GM/30 ML UDCUP PO PRN (15:51)
[2025-02-03 16:00] VITALS: BP 117/57; PULSE 66; RESP 18; TEMP 98.1
--- NOTE | 2025-02-03 16:38 | NUR ---
CHANGE IN NURSE REPORT GIVEN TO RACH LUTZ REGARDING PATIENT'S CONDITION, PENDING MD'S ORDERS AND HX. VOICED UNDERSTANDING.
--- NOTE | 2025-02-03 16:40 | NUR ---
REPORT RECEIVED FROM JAMEEL RN TO ASSUME CARE OF THIS PATIENT.
[2025-02-03 20:00] VITALS: PULSE 69; RESP 18; TEMP 98.3
[2025-02-04] VITALS (7 sets, daily range): BP systolic 113–151; BP diastolic 57–75; PULSE 58–72; RESP 17–21; TEMP 97.8–98.4
[2025-02-04 05:59] LABS: NUCLEATED RED BLOOD CELLS 0.0 % (0.0-0.19); PLATELET COUNT (AUTO) 203.0 K/uL (130-400); RED BLOOD CELL COUNT(AUTO) 3.89 MIL/uL (4.00-5.50); RED CELL DISTRIBUTION WIDTH 13.0 % (11.0-15.5); WHITE BLOOD COUNT (AUTO) 5.8 K/uL (4.8-10.8)
[2025-02-04 06:14] LABS: CREATININE 0.8 mg/dL (0.5-1.0); GLOMERULAR FILTR. RATE CALC 81.0 mL/min (>90); GLUCOSE,RANDOM 125.0 mg/dL (70-105); SODIUM SERUM 138.0 mmol/L (136-145); UREA NITROGEN, BLOOD 22.0 mg/dL (7-18)
--- NOTE | 2025-02-04 16:05 | PN ---
INFECTIOUS DISEASE PROGRESS NOTE Date of Service: Feb 04, 2025 SUBJECTIVE: This 64 year old female patient is being seen today at bedside. She is awake, alert and oriented x3. No fever or chills. No nausea or vomiting. Patient denies chest pain or shortness of breath. HIDA scan pending interpretation. She states abdominal pain has improved. She continues on Meropenem for UTI and bacteremia. No acute events over night reported by nurse. PHYSICAL EXAM EYES: Anicteric. Pupils equal and reactive. HENT: No oral thrush seen, moist Oral mucosa. NECK: Supple, no JVD or thyromegaly. LUNGS: Good air entry. No rales, no rhonchi. CARDIOVASCULAR: S1, S2 regular. No murmur heard. ABDOMEN: Soft, non tender, bowel sounds present, no organomegaly. CENTRAL NERVOUS SYSTEM: Awake, alert, oriented x 3. SKIN: No rashes, no swelling. Psoriasis. LYMPHATICS: No peripheral lymphadenopathy MUSCULOSKELETAL: No joint swelling, erythema or tenderness. EXTREMITIES: No cyanosis or clubbing. Weakness. BACK: No deformity, no pressure ulcer. GENITOURINARY: No dysuria or hematuria. Vital Sign (Last 12 Hours) 02/04/25 02/04/25 02/04/25 07:57 08:00 12:00 Temp 98.1 97.9 Pulse 64 72 Resp 20 21 B/P (MAP) 135/72 151/75 Pulse Ox 97 97 O2 Delivery Room Air Room Air* Room Air O2 Flow Rate 0 FiO2 21 LABS: Laboratory: Test 02/04/25 11:11 02/04/25 05:13 02/03/25 10:17 Range/Units Whole Blood Glucose 228 #H 70-110 MG/DL White Blood Count 5.8 4.8-10.8 K/uL Red Blood Count 3.89 L 4.00-5.50 MIL/uL Hemoglobin 11.0 L 12.0-16.0 g/dL Hematocrit 32.0 L 36-48 % Mean Corpuscular Volume 82.3 79-99 fL Mean Corpuscular Hemoglobin 28.3 27.0-33.0 pg Mean Corpuscular Hemoglobin Concent 34.4 32.0-36.0 g/dL Red Cell Distribution Width 13.0 11.0-15.5 % Platelet Count 203 # 130-400 K/uL Mean Platelet Volume 10.0 7.5-10.5 fL Nucleated Red Blood Cells 0.0 0.0-0.19 % Sodium Level 138 136-145 mmol/L Potassium Level 4.0 3.5-5.1 mmol/L Chloride Level 104 101-111 mmol/L Carbon Dioxide Level 27 21-32 mmol/L Blood Urea Nitrogen 22 H 7-18 mg/dL Creatinine 0.8 0.5-1.0 mg/dL Glomerular Filtration Rate Calc 81 >90 mL/min Random Glucose 125 H 70-105 mg/dL Total Calcium 9.0 8.5-10.1 mg/dL Magnesium Level 2.10 1.80-2.40 mg/dL Prothrombin Time 10.9 9.6-11.6 SEC Prothromb Time International Ratio 1.03 0.85-1.15 Activated Partial Thromboplast Time 26.7 26.3-35.5 SEC ASSESSMENT: E coli bacteremia. Urinary tract infection E Coli. Infection with multidrug resistant organism. Cholelithiasis with distended gallbladder. Generalized body weakness. Diabetes mellitus. Hypercholesterolemia. History of psoriasis. Dizziness. PLAN: Continue Meropenem. Continue antidiabetics. Continue antiemetics. Pending Hida scan reading. Case management to evaluate patient for referral to SNF for IV antibiotics. Follow neurology recommendations This case was reviewed and discussed with my supervising physician and the above assessment and plan was formulated and agreed upon. HARIKA JOHNSON Feb 04, 2025 16:05
--- NOTE | 2025-02-04 18:19 | HMCIMG ---
EXAM: HIDA scan. INDICATION: Severe RUQ Pain to rule out GB dyskinesia. REFERENCE EXAMINATION: None TECHNIQUE: Sequential images of the abdomen were obtained in the anterior projection after IV administration of 6.0 mCi of Tc99m Mebrofenin. FINDINGS: Tracer activity throughout the liver is homogeneous without focal defects. There is prompt excretion of the pharmaceutical into the bile ducts and into the small bowel, without evidence of obstruction. There is a visualization of the gallbladder during the examination. IMPRESSION: Scintigraphic findings suggest no obvious features of cholecystitis. /[place]
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
[2025-02-05 04:00] VITALS: BP 126/60; PULSE 65; RESP 16; TEMP 98.5
[2025-02-05 05:51] LABS: NUCLEATED RED BLOOD CELLS 0.0 % (0.0-0.19); PLATELET COUNT (AUTO) 207.0 K/uL (130-400); RED BLOOD CELL COUNT(AUTO) 3.65 MIL/uL (4.00-5.50); RED CELL DISTRIBUTION WIDTH 12.7 % (11.0-15.5); WHITE BLOOD COUNT (AUTO) 6.7 K/uL (4.8-10.8)
[2025-02-05 05:59] LABS: CREATININE 1.0 mg/dL (0.5-1.0); GLOMERULAR FILTR. RATE CALC 62.0 mL/min (>90); GLUCOSE,RANDOM 211.0 mg/dL (70-105); SODIUM SERUM 136.0 mmol/L (136-145); UREA NITROGEN, BLOOD 22.0 mg/dL (7-18)
[2025-02-05 08:00] VITALS: BP 129/65; PULSE 61; RESP 18; TEMP 97.9
--- NOTE | 2025-02-05 16:47 | DS ---
Discharge Summary Hospital Course This is a 64-year-old female patient with medical history of diabetes mellitus, hypercholesterolemia, psoriasis and left foot osteomyelitis who presented to the hospital with chief complaint of nausea, vomiting, and generalized body weakness. Patient reported experiencing fever at home but no chills. Patient had a fever of 101.5 and a lactic acid of 2.2 on admission. No recent travel. Influenza and COVID-19 test was negative. A Urinalysis was positive and the urine culture came back positive for ESBL E coli. On 02/02/2025 patient also had positive blood culture with ESBL E coli and antibiotics was changed to Meropenem. a\An abdominal ultrasound shows small calculi, but a HIDA scan was n egative for cholecystitis. Today patient will be discharged to [facility] to continue IV antibiotics. FINAL DISCHARGE DIAGNOSIS: E coli bacteremia. Urinary tract infection E Coli. Infection with multidrug resistant organism. Cholelithiasis with distended gallbladder. Generalized body weakness. Diabetes mellitus. Hypercholesterolemia. History of psoriasis. Dizziness. PLAN: Discharge patient to [facility] today. Refer to medication reconciliation. This case was reviewed and discussed with my supervising physician Dr. Vidal and the above assessment and plan was formulated and agreed upon. ATTESTATION BY PHYSICIAN I have seen and examined the patient. I reviewed the documentation, medical decision making, and treatment plan as noted by the mid-level provider above. I agree with the findings and plan of care. KYLE VIDAL MD, [facility] Feb 05, 2025 16:47
== END 2025-02-05 15:50 | DRG 872 ==
LOC: EDH 11:08 → EDHIP 15:35 → 3CH 02-01 01:31
PROVIDERS: ADMIT Internal Medicine Infectious Disease; ATTEND Internal Medicine Infectious Disease
PROC: 05HY33Z Insertion of Infusion Device into Upper Vein, Percutaneous Approach (ICD-10-PCS; principal; 2025-02-03)
DX: A41.51 Sepsis due to Escherichia coli [E. coli] (principal); N17.9 Acute kidney failure, unspecified; N30.01 Acute cystitis with hematuria; Z16.12 Extended spectrum beta lactamase (ESBL) resistance; Z16.24 Resistance to multiple antibiotics; E87.1 Hypo-osmolality and hyponatremia; B96.89 Other specified bacterial agents as the cause of diseases classified elsewhere; B96.20 Unspecified Escherichia coli [E. coli] as the cause of diseases classified elsewhere; E11.9 Type 2 diabetes mellitus without complications; E78.00 Pure hypercholesterolemia, unspecified; E87.8 Other disorders of electrolyte and fluid balance, not elsewhere classified; K80.20 Calculus of gallbladder without cholecystitis without obstruction; K82.8 Other specified diseases of gallbladder; E86.9 Volume depletion, unspecified; Z80.0 Family history of malignant neoplasm of digestive organs; Z87.440 Personal history of urinary (tract) infections
CPT/HCPCS: 36415; 36556; 76700; 78226; 80048; 80053; 81001; 82948; 83036; 83605; 83690; 83735; 84484; 85025; 85027; 85610; 85730; 87040; 87086; 87186; 87426; 87804; 93005; 96374; 96375; 99285; A9537; C1894; G0378; J0696; J1650; J1815; J2185; J2405; J2543; Q0162; C1750